=== PATIENT | female | born 1960 | race Caucasian/White ===

== ENCOUNTER → 2017-01-16 | Outpatient (CLI) | payer OTHER ==
[2017-01-16 07:03] LABS: ANION GAP 12 MEQ/L (5-15); BUN/CREATININE RATIO 19 RATIO (6-26); CALCIUM 9.4 MG/DL (8.4-10.2); CHLORIDE 106 MEQ/L (98-107); CO2 - CARBON DIOXIDE 29 MEQ/L (22-30); CREATININE 0.8 MG/DL (0.7-1.2); GLOMERULAR FILTRATION RATE 74; GLUCOSE 97 MG/DL (65-110); SODIUM 147 MEQ/L (134-144)
[2017-01-20 01:51] LABS: RISK FACTOR 2.4 RATIO (0-4.0)
[2017-01-20 11:38] LABS: LDL CHOLESTEROL,CALCULATED 84.6 (66-159); VLDL CHOLESTEROL 29.4 MG/DL (0-28)
== END ==
LOC: LAB 06:35
PROVIDERS: ATTEND Family Medicine
DX: Z13.220 Encounter for screening for lipoid disorders (principal); I10 Essential (primary) hypertension
CPT/HCPCS: 36415; 80048; 80061